=== PATIENT | male | born 1975 | race Two or more races ===

== ENCOUNTER → 2016-04-01 | Outpatient (REF) | payer BC ==
[~2016-04-01] MED LIST: FLEXERIL PO; MILKSUS OR; MOBIC OR; PERC5TAB8 OR; ROBA500T OR
== END ==
LOC: M SFHCLERA 10:06
PROVIDERS: ATTEND Physician Assistant
DX: L30.9 Dermatitis, unspecified (principal)

== ENCOUNTER 2017-03-01 07:43 | Emergency (ER) | payer BC ==
[2017-03-01] MEDS: ASPIRIN 81 MG CHEW TABLET PO (08:05)
[2017-03-01 08:42] LABS: BASO # 0.1 10^3/uL (0.0-0.2); BASO % 0.8 % (0.0-1.0); EOS # 0.2 10^3/uL (0.0-0.50); IMMATURE GRANULOCYTE % 0.2 % (0-0); LYMPH % 22.2 % (24.0-44.0); MEAN CORPUSCULAR HEMOGLOBIN 30.9 pg (27.0-33.0); MEAN CORPUSCULAR VOLUME 88.2 fl (80.0-96.0); MONO # 0.5 10^3/uL (0.0-0.8); MONO % 5.3 % (0.0-5.0); NEUTROPHILS # 6.4 10^3/uL (1.8-7.7); NEUTROPHILS % 69.5 % (36.0-66.0); PLATELET COUNT, AUTOMATED 211 10^3/uL (150-450); RED CELL DISTRIBUTION WIDTH 13.4 % (11.5-14.5); WHITE BLOOD COUNT 9.2 10^3/uL (4.0-10.0)
[2017-03-01 09:08] LABS: ALBUMIN 3.7 GM/DL (3.2-5.2); ALBUMIN/GLOBULIN RATIO 1.09 (1.00-1.93); ALKALINE PHOSPHATASE 53 U/L (45-117); ALT/SGPT 30 U/L (12-78); ANION GAP 7 MEQ/L (8-16); AST/SGOT 14 U/L (7-37); BILIRUBIN,DIRECT 0.1 MG/DL (0.0-0.2); BILIRUBIN,TOTAL 0.4 MG/DL (0.2-1.0); BLOOD UREA NITROGEN 17 MG/DL (7-18); CALCIUM LEVEL 8.4 MG/DL (8.5-10.1); CARBON DIOXIDE LEVEL 26 MEQ/L (21-32); CHLORIDE LEVEL 109 MEQ/L (98-107); CREATININE FOR GFR 0.81 MG/DL (0.70-1.30); GLOMERULAR FILTRATION RATE > 60.0 (>60); GLUCOSE, FASTING 103 MG/DL (70-105); SODIUM LEVEL 142 MEQ/L (136-145); TOTAL PROTEIN 7.1 GM/DL (6.4-8.2)
[2017-03-01] MEDS ORDERED: ISOVUE-370 76% 100ML VIAL (Q9967) As Ordered (09:08)
[2017-03-01] MEDS: PERCOCET 5MG/325MG TAB PO (10:21)
[2017-03-01] MEDS: NORCO 5/325MG TABLET (BULK FOR ED) PO (10:21)
[2017-03-01] MEDS: KETOROLAC 30 MG/ML VIAL (J1885) IV (10:21)
== END 2017-03-01 11:25 | disposition home or self-care (01) ==
LOC: M ED 07:43
DX: R07.9 Chest pain, unspecified (principal); J90 Pleural effusion, not elsewhere classified; Z87.891 Personal history of nicotine dependence
CPT/HCPCS: Q9967

== ENCOUNTER 2020-07-17 09:51 | Emergency (ER) | payer BC, OTHER ==
[~2020-07-17] VITALS: Ht 182.9 cm; Wt 107.8 kg
--- NOTE | 2020-07-17 10:16 | REP ---
INDICATION: injury COMPARISON: None. TECHNIQUE: AP, lateral, bilateral oblique views left hand. FINDINGS: Small nondisplaced corner fracture at the base of the 1st digit proximal phalanx at the metacarpophalangeal joint with overlying soft tissue swelling. Remainder of the examination is normal. IMPRESSION: Small nondisplaced intra-articular corner fracture at the base of the 1st proximal phalanx. <Electronically signed by Melvin Brandon > 07/17/20 101
[2020-07-17 11:21] VITALS: BP 140/99
== END 2020-07-17 11:33 | disposition home or self-care (01) ==
LOC: M ED 09:51
DX: S62.515A Nondisplaced fracture of proximal phalanx of left thumb, initial encounter for closed fracture (principal); X58.XXXA Exposure to other specified factors, initial encounter; Y92.59 Other trade areas as the place of occurrence of the external cause; Y93.89 Activity, other specified; Y99.0 Civilian activity done for income or pay

== ENCOUNTER → 2020-08-06 | Outpatient (CLI) | payer OTHER ==
--- NOTE | 2020-08-06 12:23 | REP ---
INDICATION: F/U FX. COMPARISON: 07/17/2020 TECHNIQUE: AP, lateral, bilateral oblique views right 1st digit FINDINGS: Nondisplaced corner fracture at the base of the proximal phalanx again identified IMPRESSION: Nondisplaced fracture at the base of the proximal phalanx. <Electronically signed by Melvin Brandon > 08/06/20 [id number]
== END ==
LOC: M SOG 11:10
PROVIDERS: ATTEND Orthopaedic Surgery Adult Reconstructive Orthopaedic Surgery
DX: S62.515A Nondisplaced fracture of proximal phalanx of left thumb, initial encounter for closed fracture (principal)

== ENCOUNTER → 2022-06-10 | Outpatient (REF) | payer OTHER ==
[2022-06-10 14:48] LABS: SEMEN APPEARANCE OPAQUE (OPAQUE); SEMEN VISCOSITY LIQUID (LIQUID); SEMEN VOLUME 4.7 ml (2.0-5.0); WBC CONCENTRATION <=1 M/ml (<=1 M/ml)
== END ==
LOC: M SMT 13:07
PROVIDERS: ATTEND Physician Assistant
DX: Z98.52 Vasectomy status (principal)

== ENCOUNTER → 2022-12-15 | Outpatient (CLI) | payer OTHER | LOC: M SLEEP 20:00 | PROVIDERS: ATTEND Physician Assistant Medical | DX: G47.33 Obstructive sleep apnea (adult) (pediatric) (principal) ==

== ENCOUNTER → 2023-09-14 | Outpatient (REF) | payer OTHER ==
[2023-09-14 10:57] LABS: APPEARANCE, URINE CLEAR (CLEAR); BACTERIA, URINE AUTO NEGATIVE (NEGATIVE); BILIRUBIN, URINE AUTO NEGATIVE (NEGATIVE); BLOOD, URINE BLOOD 1+ (NEGATIVE); COLOR, URINE YELLOW (YELLOW); GLUCOSE, URINE (UA) AUTO NEGATIVE (NEGATIVE); KETONE, URINE AUTO NEGATIVE (NEGATIVE); LEUKOCYTE ESTERASE, URINE AUTO NEGATIVE (NEGATIVE); NITRITE, URINE AUTO NEGATIVE (NEGATIVE); PROTEIN, URINE AUTO NEGATIVE (NEGATIVE); RBC, URINE AUTO 1 /HPF (0-3); SPECIFIC GRAVITY URINE AUTO 1.015 (1.002-1.035); SQUAMOUS EPITHELIAL CELL UR AU 0 /HPF (0-6); UROBILINOGEN, URINE AUTO 0.2 mg/dL (0.0-2.0); WBC, URINE AUTO 0 /HPF (0-3)
== END ==
LOC: M SMT 09:57
PROVIDERS: ATTEND Physician Assistant
DX: N50.82 Scrotal pain (principal)

== ENCOUNTER 2025-01-19 07:06 | Day surgery (SDC) | payer OTHER ==
[~2025-01-19] VITALS: Ht 182.9 cm; Wt 88.3 kg
[~2025-01-19 07:06] MED LIST changes: +COQ150CH PO; +TADA20TA29 PO
[2025-01-19 08:47] VITALS: TEMP 97.6
[2025-01-19 09:05] VITALS: BP 116/67; O2SAT 98
== END 2025-01-19 09:16 | disposition home or self-care (01) ==
LOC: M OPP 07:06
PROVIDERS: ATTEND Surgery
DX: Z12.11 Encounter for screening for malignant neoplasm of colon (principal); K64.4 Residual hemorrhoidal skin tags; Z79.899 Other long term (current) drug therapy